=== PATIENT | female | born 2000 | race Caucasian/White ===

== ENCOUNTER 2019-04-29 08:07 | Day surgery (SDC) | payer BC ==
[2019-04-28 17:56] VITALS: BMI 23.5
[~2019-04-29] VITALS: Ht 170.2 cm; Wt 73.2 kg
[~2019-04-29 08:07] MED LIST: CEFAZOLIN 2 GM/50 ML (PMX) 50 ML IVPB ONE; SOD CHLORIDE 0.9% 1,000 ML IV SCH
[2019-04-29 09:13] VITALS: BP 116/71; PULSE 90; RESP 18; Ht 170.2 cm; Wt 73.2 kg
--- NOTE | 2019-04-29 10:27 | PREAC ---
Date/Time of Note Date/Time of Note DATE: 04/29/19 TIME: 10:25 Anesthesia Eval and Record Evaluation Time Pre-Procedure Interview DATE: 04/29/19 TIME: 10:25 Age 19 Sex female NPO: 8 hrs Preoperative diagnosis left arm forien body Planned procedure removal foreign body Past Medical History Past Medical History: None Surgery & Anesthesia Issues No known issue Meds Anticoagulation: No Beta Robert within 24 hr: No Reason Beta Robert not given: Pt. not on B-Robert No Active Prescriptions or Reported Meds Current Medications Sodium Chloride 1,000 ml @ 75 mls/hr [id number] IV ; Start 04/29/19 at 07:00 Meds reviewed: Yes Allergies Coded Allergies: morphine (Verified Allergy, Unknown, SWELLING, HIVES, 04/29/19) Allergies Reviewed: Yes Labs/Studies Labs Reviewed: Reviewed by anesthesiologist test: Negative Pre-procedure Exam Last vitals Vital Signs Date Temp Pulse Resp B/P (MAP) Pulse Ox O2 O2 Flow FiO2 Time Delivery Rate 04/29/19 98.0 90 18 116/71 98 Room Air 09:13 (86) Airway: Adequate mouth opening Mallampati: Mallampati I Teeth: Normal Lung: Normal Heart: Normal ASA Physical Status ASA physical status: 2 Emergency: None Planned Anesthetic General/MAC: Mask, ETT, LMA, MAC Pre-operative Attestations Prior to commencing anesthesia and surgery, the patient was re-evaluated, there was verification of: *The patient's identity *The results of appropriate recent lab work and preoperative vital signs *The above evaluation not changing prior to induction *Anesthetic plan, risk benefits, alternative and complications discussed with patient/family; questions answered; patient/family understands, accepts and wishes to proceed. MAGUI HENDRICKS MD Apr 29, 2019 10:27
[2019-04-29] MEDS ORDERED: IPRATROPIUM (NEB) 0.5 MG/2.5 ML AMP HHN PRN (10:30)
[2019-04-29] MEDS ORDERED: hydrALAzine 20 MG INJ IV PRN (10:30)
[2019-04-29] MEDS ORDERED: FENTAnyl 50 MCG/ML VIAL IV PRN ×3 (10:30)
[2019-04-29] MEDS ORDERED: ONDANSETRON 4 MG INJ IV PRN (10:30)
[2019-04-29] MEDS ORDERED: LABETALOL HCL 20MG INJ IV PRN (10:30)
[2019-04-29] MEDS ORDERED: HYDROmorphONE 1 MG/5 ML IV SYRINGE IV PRN ×3 (10:30)
[2019-04-29] MEDS ORDERED: ALBUTEROL 0.083% (NEB) 2.5 MG/3 ML AMP HHN PRN (10:30)
[2019-04-29] MEDS ORDERED: MEPERIDINE 25 MG INJ IV PRN (10:30)
[2019-04-29] MEDS ORDERED: EPHEDrine 25 MG/5 ML SYG IV PRN (10:30)
[2019-04-29] MEDS ORDERED: MIDAZOLAM 1 MG/ML 2 ML INJ IV PRN (10:30)
[2019-04-29] MEDS ORDERED: TRIMETHOBENZAMIDE 100 MG/ML VIAL IM PRN (10:30)
[2019-04-29] MEDS ORDERED: DIPHENHYDRAMINE 50 MG INJ IV PRN (10:30)
[2019-04-29] MEDS ORDERED: PROPOFOL 20 ML ONE (10:36)
[2019-04-29] MEDS ORDERED: MIDAZOLAM 1 MG/ML 2 ML INJ ONE (10:36)
[2019-04-29] MEDS ORDERED: FENTAnyl 50 MCG/ML VIAL ONE (10:36)
[2019-04-29] MEDS ORDERED: LIDOCAINE 2% (MDV) 20 ML INJ ONE (10:49)
[2019-04-29] MEDS ORDERED: BUPIVACAINE 0.5% (SDV) 30 ML INJ ONE (10:49)
[2019-04-29] MEDS ORDERED: LIDOCAINE 1% (MDV) 20 ML INJ INJ ONE (11:15)
[2019-04-29] MEDS ORDERED: BUPIVACAINE 0.5%/EPI (SDV) 30 ML INJ INJ ONE (11:15)
[2019-04-29] MEDS ORDERED: ONDANSETRON 4 MG INJ ONE (11:26)
--- NOTE | 2019-04-29 11:32 | SIPON ---
Date/Time of Note Date/Time of Note DATE: 04/29/19 TIME: 11:30 Operative Report Preoperative Diagnosis Subcutaneous control device left upper extremity need for removal Postoperative Diagnosis Same Operation/Procedure Performed Removal of subsidized control device left upper extremity under fluoroscopic guidance Surgeon see signature line payroll assistant Dr Mclean Anesthesia: general Estimated blood loss: 0 - 10 ml's Transfusion Required none Specimen Subcutaneous control device left upper extremity Grafts/Implants none Complications none MARIAJOSE GARRISON MD Apr 29, 2019 11:32
[2019-04-29 11:46] VITALS: BP 113/66; PULSE 92; RESP 21
[2019-04-29 11:51] VITALS: BP 105/62; PULSE 90; RESP 20
--- NOTE | 2019-04-29 11:53 | PAC ---
Date/Time of Note Date/Time of Note DATE: 04/29/19 TIME: 11:52 Post-Anesthesia Notes Post-Anesthesia Note Last documented vital signs Vital Signs Date Temp Pulse Resp B/P (MAP) Pulse Ox O2 O2 Flow FiO2 Time Delivery Rate 04/29/19 98.0 11:50 04/29/19 90 18 116/71 98 Room Air 09:13 (86) Activity: WNL Respiratory function: WNL Cardiovascular function: WNL Mental status: Baseline Pain reasonably controlled: Yes Hydration appropriate: Yes Nausea/Vomiting absent: Yes MAGUI HENDRICKS MD Apr 29, 2019 11:53
[2019-04-29 11:56] VITALS: BP 99/59; PULSE 84; RESP 16
[2019-04-29 12:01] VITALS: BP 101/62; PULSE 82; RESP 18
--- NOTE | 2019-04-29 13:08 | OPR ---
DATE OF OPERATION: 04/29/2019 PREOPERATIVE DIAGNOSIS: Need for removal of subcutaneous control device, left upper extremity. POSTOPERATIVE DIAGNOSIS: Need for removal of subcutaneous control device, left upper extremity . OPERATION PERFORMED: Removal of control device left upper extremity under fluoroscopic guidanc e. ANESTHESIA: General. ANESTHESIOLOGIST: Ronny Liz MD SURGEON: Perfecto Mccall MD HEALTH UNIT COORDINATOR: Harris Mclean MD INDICATIONS FOR PROCEDURE: The patient is a 19-year-old female who previously had an implantable bir th control device. She wished to have it removed. She consented and was scheduled for surgery. DESCRIPTION OF PROCEDURE: The patient was brought to the operating theater, placed under IV sedation . A administrative services specialist film was taken using fluoroscopy and confirmation of the location of the control dev ice took place. The area was then infiltrated with a 50:50 mixture of 1% lidocaine local anesthetic with epinephrine and 0.5% Marcaine. A small approximately 1 to 2 cm incision was made in the area di rectly over the foreign body. Subcutaneous tissue was then gently dissected with cautery. The subcu taneous control device was identified. It was grasped with a hemostat and gently removed. It was sent for gross pathologic analysis to confirm complete removal. The wound was then irrigated. M inimal bleeding was controlled with cautery, and the skin was reapproximated with 5-0 PDS sutures in subcuticular fashion, and benzoin and Steri-Strips were applied. The patient tolerated procedure wel l. Estimated blood loss was 2 mL. There were no complications and the patient was transported in st able condition to the recovery room. Dictated By: PERFECTO MCCALL MD TL/NTS Conf#: [id number] DID#: [id number] CC: HARRIS MCLEAN MD;*EndCC*
== END 2019-04-29 12:40 | disposition home or self-care (01) ==
LOC: SDS 08:07
PROVIDERS: ATTEND Surgery Surgical Oncology
DX: Z30.46 Encounter for surveillance of implantable subdermal contraceptive (principal)
CPT/HCPCS: 11982; 73060; 88300; J2250; J2405; J3010; Z7512; Z7610; J0690